=== PATIENT | female | born 1980 | race Caucasian/White ===

== ENCOUNTER 2022-10-13 13:28 | Emergency (ER) | payer BC | END 2022-10-13 15:20 | disposition home or self-care (01) | LOC: CC.ED 13:28 | DX: S92.345A Nondisplaced fracture of fourth metatarsal bone, left foot, initial encounter for closed fracture (principal); Z88.5 Allergy status to narcotic agent; W18.30XA Fall on same level, unspecified, initial encounter | CPT/HCPCS: 73630-LT; 99283 ==